=== PATIENT | female | born 1965 | race Caucasian/White ===

== ENCOUNTER 2023-02-19 13:59 | Emergency (ER) | payer OTHER ==
[~2023-02-19] VITALS: Ht 154.9 cm; Wt 66.7 kg
[2023-02-19] MEDS ORDERED: HYDROCODONE/APAP 5-325MG TABLET ONE (14:37)
[2023-02-19] MEDS ORDERED: HYDR-4209 PO (15:02)
[2023-02-19] MEDS ORDERED: HYDROCODONE/APAP 5-325MG TABLET PO ONE (15:15)
[2023-02-19 15:30] VITALS: BP 118/70; O2SAT 98
== END 2023-02-19 15:31 | disposition home or self-care (01) ==
LOC: ER 13:59
DX: S82.491A Other fracture of shaft of right fibula, initial encounter for closed fracture (principal); X50.1XXA Overexertion from prolonged static or awkward postures, initial encounter; Y93.89 Activity, other specified; Y92.89 Other specified places as the place of occurrence of the external cause; Y99.8 Other external cause status
CPT/HCPCS: 73610; A4606; A4663